=== PATIENT | female | born 2000 | race Two or more races ===

== ENCOUNTER → 2020-03-04 | Outpatient (CLI) | payer OTHER | END | disposition home or self-care (01) | LOC: PRENATAL 09:00 | DX: O35.3XX0 Maternal care for (suspected) damage to fetus from viral disease in mother, not applicable or unspecified (principal); O99.89 Other specified diseases and conditions complicating pregnancy, childbirth and the puerperium; Z36.89 Encounter for other specified antenatal screening; Z34.02 Encounter for supervision of normal first pregnancy, second trimester ==

== ENCOUNTER 2020-07-03 11:09 | Inpatient (IN) | payer OTHER ==
[~2020-07-03] VITALS: Ht 170.2 cm; Wt 3.2 kg
[2020-07-22] MEDS ORDERED: PRENATAL TABLE1 EAC1 PO (07:23)
== END 2020-07-25 18:20 | disposition home or self-care (01) | DRG 788 ==
LOC: OB/GYN 07-22 06:15 → LDR 07-22 06:15 → O/R 07-22 18:58 → OB/GYN 07-22 20:02
PROVIDERS: ADMIT Obstetrics & Gynecology; ATTEND Obstetrics & Gynecology
PROC: 4A0HXFZ Measurement of Products of Conception, Cardiac Rhythm, External Approach (ICD-10-PCS; 2020-07-22)
PROC: 10D00Z1 Extraction of Products of Conception, Low, Open Approach (ICD-10-PCS; principal; 2020-07-22 17:00)
DX: O82 Encounter for cesarean delivery without indication (principal); Z3A.40 40 weeks gestation of pregnancy; Z37.0 Single live birth; Z20.828 Contact with and (suspected) exposure to other viral communicable diseases